=== PATIENT | female | born 1930 | race Caucasian/White ===

== ENCOUNTER 2017-11-01 08:34 | Inpatient (IN) ==
[2017-11-01 09:57] LABS: Basophils % 0.4 % (0.0-0.8); Eosinophils % 0.1 % (0.00-10.9); Hematocrit 46.1 VOL% (35.7-47.0); Hemoglobin 15.6 GM/DL (12.0-16.0); Immature Granulocytes % 0.5 %; Immature Granulocytes Absolute 0.04 #; Lymphocytes # 0.8 10*3/uL (1.4-4.0); Mean Corpuscular HGB Conc 33.8 GM/DL (32-36); Mean Corpuscular Hemoglobin 28 PG (27-34); Mean Corpuscular Volume 83.1 FL (87-102); Mean Platelet Volume 9.4 FL (9.6-12.0); Monocytes # 0.7 10*3/uL (0.11-0.8); Monocytes % 8.3 % (1.7-12.7); Neutrophils # 6.5 10*3/uL (1.4-7.4); Neutrophils % 80.7 % (38.7-73.9); Platelet Count 265 T/CUMM (130-400); Red Blood Count 5.55 MC/CUMM (3.8-5.5); Red Cell Distribution Width 14.4 % (9.3-17.3)
[2017-11-01 10:05] LABS: Apearance,Urine CLEAR (Clear); Bilirubin,Urine Negative (Negative); Blood, Urine Negative (Negative); Glucose,Urine (UA) Negative (Negative); Ketones,Urine Negative (Negative); Nitrite,Urine Negative (Negative); Protein,Urine Negative; RBC,Urine <1 /HPF (0-4); Urine Color Yellow (Yellow); Urine Specific Gravity 1.004 (1.001-1.035); Urine Urobilinogen < 2.0 EU/DL (0.2-1.0)
[2017-11-01 10:55] LABS: Alanine Aminotransferase 26 U/L (13-56); Albumin 3.8 G/DL (3.4-5.0); Alkaline Phosphatase 106 U/L (45-117); Aspartate Amino Transferase 33 U/L (0-37); Blood Urea Nitrogen 19 MG/DL (7-18); Calcium 8.4 MG/DL (8.5-10.1); Glucose 111 MG/DL (74-106); Sodium 139 MMOL/L (136-145)
[2017-11-01 10:56] LABS: Osmolality,Calculated 279.5 MOS/KG (273-304); Troponin I Only < 0.015 NG/ML (0.00-0.045)
[2017-11-01] MEDS ORDERED: ACETAMINOPHEN 325 MG TABLET PO PRN (13:41)
[2017-11-01] MEDS ORDERED: ONDANSETRON 4 MG/2 ML VIAL IV PRN (13:41)
[2017-11-01] MEDS: SODIUM CHLORIDE 0.9% 1,000 ML IV SCH ×2 (14:30→22:30)
[2017-11-02 05:23] LABS: Basophils % 0.3 % (0.0-0.8); Eosinophils % 0.4 % (0.00-10.9); Hematocrit 43.9 VOL% (35.7-47.0); Hemoglobin 14.7 GM/DL (12.0-16.0); Immature Granulocytes % 0.4 %; Immature Granulocytes Absolute 0.03 #; Lymphocytes # 1.2 10*3/uL (1.4-4.0); Lymphocytes % 17.7 % (21.3-54.2); Mean Corpuscular HGB Conc 33.5 GM/DL (32-36); Mean Corpuscular Hemoglobin 28 PG (27-34); Mean Corpuscular Volume 83.9 FL (87-102); Mean Platelet Volume 9.4 FL (9.6-12.0); Monocytes # 0.6 10*3/uL (0.11-0.8); Monocytes % 8.6 % (1.7-12.7); Neutrophils # 4.9 10*3/uL (1.4-7.4); Neutrophils % 72.6 % (38.7-73.9); Platelet Count 267 T/CUMM (130-400); Red Blood Count 5.23 MC/CUMM (3.8-5.5); Red Cell Distribution Width 14.5 % (9.3-17.3); White Blood Count 6.7 T/CUMM (4-12)
[2017-11-02 06:02] LABS: Calcium 7.5 MG/DL (8.5-10.1); Osmolality,Calculated 286.8 MOS/KG (273-304); Potassium 4.3 MMOL/L (3.5-5.1); Risk Ratio 2.35; Thyroid Stimulating Hormone 7.07 uIU/ml (0.358-3.74); VLDL CHOLESTEROL 13.2 MG/DL
[2017-11-02] MEDS: SODIUM CHLORIDE 0.9% 1,000 ML IV SCH ×2 (07:35→17:53)
[2017-11-02] MEDS ORDERED: SODIUM CHLORIDE 0.9% 1,000 ML IV SCH (08:00)
[2017-11-02] MEDS ORDERED: MIDAZOLAM 10 MG/2 ML VIAL ONE ×2 (09:08→10:17)
[2017-11-02] MEDS: PANTOPRAZOLE 40 MG TABLET PO SCH (09:14)
[2017-11-02] MEDS ORDERED: HYDROmorphone 2 MG/1 ML VIAL ONE (10:24)
[2017-11-02] MEDS ORDERED: MIDAZOLAM 2 MG/2 ML VIAL IV ONE (10:58)
[2017-11-02] MEDS ORDERED: HYDROmorphone 2 MG/1 ML VIAL IV ONE (11:00)
[2017-11-02] MEDS ORDERED: FLUMAZENIL 0.5 MG/5 ML VIAL IV ONE (11:01)
[2017-11-02] MEDS ORDERED: ETOMIDATE 20 MG/10 ML VIAL IV ONE (11:15)
[2017-11-02] MEDS ORDERED: PROPOFOL 200 MG/20 ML VIAL IV ONE (11:15)
[2017-11-03] MEDS: SODIUM CHLORIDE 0.9% 1,000 ML IV SCH ×2 (02:08→10:32)
[2017-11-03 07:50] LABS: Cancer Antigen 19-9 13.6 U/ML (0-37); Carcinoembryonic Antigen 4.9 NG/ML (0.0-5.0)
[2017-11-03 08:13] VITALS: BP 140/70
[2017-11-03] MEDS: PANTOPRAZOLE 40 MG TABLET PO SCH (08:47)
== END 2017-11-03 12:40 | disposition home or self-care (01) | DRG 316 ==
LOC: N.ED 08:34 → N.EDINP 12:39 → N.4E 14:03
PROVIDERS: ADMIT Hospitalist; ATTEND Hospitalist